=== PATIENT | male | born 1955 | race African-American/Black ===

== ENCOUNTER → 2018-09-09 | Outpatient (CLI) | payer OTHER | END | disposition home or self-care (01) | LOC: CARD 08:00 | PROVIDERS: ATTEND Genetic Counselor, MS | DX: I49.3 Ventricular premature depolarization (principal); I49.1 Atrial premature depolarization | CPT/HCPCS: 93017 ==

== ENCOUNTER 2018-10-30 11:56 | Outpatient (CLI) | payer OTHER | END 2018-10-30 23:59 | disposition home or self-care (01) | LOC: CVU 11:56 | PROVIDERS: ATTEND Internal Medicine Cardiovascular Disease | DX: I35.1 Nonrheumatic aortic (valve) insufficiency (principal) | CPT/HCPCS: 93306 ==

== ENCOUNTER 2018-11-06 07:34 | Outpatient (CLI) | payer OTHER | END 2018-11-06 23:59 | disposition home or self-care (01) | LOC: CFH 07:34 | PROVIDERS: ATTEND Internal Medicine Cardiovascular Disease | DX: R94.39 Abnormal result of other cardiovascular function study (principal); R07.9 Chest pain, unspecified | CPT/HCPCS: 78452; 93017; A9502 ==

== ENCOUNTER → 2019-04-29 | Outpatient (CLI) | payer OTHER | END | disposition home or self-care (01) | LOC: CVU 10:13 | PROVIDERS: ATTEND Nurse Practitioner Family | DX: I65.23 Occlusion and stenosis of bilateral carotid arteries (principal); I10 Essential (primary) hypertension | CPT/HCPCS: 93880 ==

== ENCOUNTER 2020-03-13 21:33 | Emergency (ER) | payer OTHER ==
[~2020-03-13] VITALS: Ht 170.2 cm; Wt 118.0 kg
--- NOTE | 2020-03-13 21:44 | NUR ---
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
[2020-03-13 23:24] VITALS: BP 138/70
--- NOTE | 2020-03-13 23:24 | NUR ---
at bedside for recheck.
== END 2020-03-14 00:08 | disposition home or self-care (01) ==
LOC: ED 22:10
DX: S06.0X0A Concussion without loss of consciousness, initial encounter (principal); M25.461 Effusion, right knee; W01.0XXA Fall on same level from slipping, tripping and stumbling without subsequent striking against object, initial encounter; Y93.89 Activity, other specified; Y92.098 Other place in other non-institutional residence as the place of occurrence of the external cause; Y99.8 Other external cause status
CPT/HCPCS: 70450; 99284